=== PATIENT | female | born 1965 | race Caucasian/White ===

== ENCOUNTER 2018-12-09 11:32 | Outpatient (CLI) | payer OTHER | END 2018-12-09 15:59 | disposition home or self-care (01) | LOC: MAMO-SONO 11:32 | DX: Z12.31 Encounter for screening mammogram for malignant neoplasm of breast (principal); Z87.898 Personal history of other specified conditions; N63.10 Unspecified lump in the right breast, unspecified quadrant; N63.20 Unspecified lump in the left breast, unspecified quadrant; N64.4 Mastodynia ==

== ENCOUNTER 2021-06-11 08:00 | Outpatient (CLI) | payer OTHER | END 2021-06-11 08:30 | disposition home or self-care (01) | LOC: PPH VACUNA 08:00 | PROVIDERS: ATTEND Emergency Medicine Pediatric Emergency Medicine | DX: Z23 Encounter for immunization (principal) ==

== ENCOUNTER 2021-06-24 10:02 | Outpatient (CLI) | payer OTHER | END 2021-06-24 10:12 | disposition home or self-care (01) | LOC: RAD 10:02 | PROVIDERS: ATTEND Specialist | DX: M54.50 Low back pain, unspecified (principal); R10.2 Pelvic and perineal pain ==